=== PATIENT | male | born 1950 | race Hispanic/Latino ===

== ENCOUNTER 2023-10-03 09:44 | Day surgery (SDC) | payer OTHER ==
[2023-10-02 13:34] LABS: BASOPHILS # (AUTO) 0.04 K/uL (0.00-0.20); BASOPHILS % (AUTO) 0.4 % (0.0-5.0); EOSINOPHILS # (AUTO) 0.39 K/uL (0.00-0.70); EOSINOPHILS % (AUTO) 3.7 % (0.0-8.0); HEMATOCRIT 37.6 % (42-54); IMMATURE GRANULOCYTE ABSOLUTE 0.11 K/uL (0-1); LYMPHOCYTES # (AUTO) 2.8 K/uL (1.0-4.8); LYMPHOCYTES % (AUTO) 26.3 % (21.0-51.0); MEAN CORPUSCULAR HEMOGLOBIN 31.2 pg (27.0-33.0); MEAN CORPUSCULAR VOLUME 94.5 fL (79-99); MONOCYTES # (AUTO) 0.8 K/uL (0.1-1.0); MONOCYTES % (AUTO) 7.3 % (3.0-13.0); NEUTROPHILS # (AUTO) 6.5 K/uL (1.8-7.7); NEUTROPHILS % (AUTO) 61.3 % (40.0-77.0); PLATELET COUNT (AUTO) 283 K/uL (130-400); RED BLOOD CELL COUNT(AUTO) 3.98 MIL/uL (4.50-6.20); RED CELL DISTRIBUTION WIDTH 12.4 % (11.0-15.5); WHITE BLOOD COUNT (AUTO) 10.7 K/uL (4.8-10.8)
[2023-10-02 13:38] VITALS: BP 147/70; PULSE 85; RESP 16
[2023-10-02 13:41] LABS: CREATININE 1.2 mg/dL (0.5-1.5); POTASSIUM 4.1 mmol/L (3.5-5.1)
[2023-10-02 13:44] LABS: INR < 0.93 (0.85-1.15); PROTHROMBIN TIME 10.3 SEC (9.6-11.6)
[2023-10-02 13:46] LABS: PARTIAL THROMBOPLASTIN TIME 27.1 SEC (26.3-35.5)
[2023-10-02 13:57] LABS: B-TYPE NATRIURETIC PEPTIDE 16 pg/mL (0-100)
[2023-10-03] VITALS (9 sets, daily range): BP systolic 107–134; BP diastolic 51–68; PULSE 73–98; RESP 15–19
[~2023-10-03] VITALS: Ht 172.7 cm; Wt 90.1 kg
[~2023-10-03 09:44] MED LIST: ATOR40TA69 PO; CARV6.25 PO; CLOP-31 PO; DAPA10TA PO; GABA-529 PO; HYDR-4060 PO; IBUP-2077 PO; ICOS1CAP PO; LOSA100T59 PO; METF-446 PO; NITR0.4T50 SL; ONDA8TAB12 PO; PANT40TA54 PO; SEMA7TAB2 PO; ZOLP10TA2 PO
[2023-10-03] MEDS ORDERED: IOHEXOL 350 MG/ML 100ML INFUS..BTL IV ONE ×2 (11:49→12:48)
[2023-10-03] MEDS ORDERED: LIDOCAINE HCL 400MG/20ML VIAL ONE ×2 (11:49→12:39)
[2023-10-03] MEDS ORDERED: IOHEXOL-350 50ML VIAL IV ONE (11:50)
[2023-10-03] MEDS ORDERED: NITROGLYCERIN 50MG VIAL ONE (11:50)
[2023-10-03] MEDS ORDERED: VERAPAMIL HCL 2.5 MG/ML VIAL ONE (11:50)
[2023-10-03] MEDS ORDERED: HEPARIN 10,000 UNIT/10ML (1,000 UNIT/ML) VIAL ONE (11:50)
[2023-10-03] MEDS ORDERED: TAMS-1 PO (12:23)
[2023-10-03] MEDS ORDERED: BIVALIRUDIN 250 MG/VIAL IV ONE (12:27)
[2023-10-03] MEDS ORDERED: MIDAZOLAM HCL 1 MG/ML 2ML VIAL ONE (12:32)
[2023-10-03] MEDS ORDERED: FENTANYL CITRATE PF 50 MCG/1 ML 2ML VIAL ONE (12:32)
[2023-10-03] MEDS ORDERED: 0.9%NACL 1000ML 1,000 ML IV ONE (12:34)
[2023-10-03] MEDS ORDERED: HYDRALAZINE 20MG/ML VIAL ONE (13:38)
[2023-10-03] MEDS ORDERED: 0.9%NACL 1000ML 1,000 ML IV SCH (14:00)
[2023-10-03] MEDS ORDERED: DEXTROSE 50%-WATER 50 ML DISP.SYRIN IV PRN (14:00)
[2023-10-03] MEDS ORDERED: GLUCAGON 1MG KIT 1 MG ML IM PRN (14:00)
[2023-10-03] MEDS ORDERED: INSULIN HUMULIN R 100 UNIT/ML 3ML SQ SCH (16:30)
== END 2023-10-03 17:10 | disposition home or self-care (01) ==
LOC: DAH 09:44
PROVIDERS: ATTEND Internal Medicine Interventional Cardiology
DX: I25.10 Atherosclerotic heart disease of native coronary artery without angina pectoris (principal); I27.20 Pulmonary hypertension, unspecified; T82.855A Stenosis of coronary artery stent, initial encounter; I73.9 Peripheral vascular disease, unspecified; E11.43 Type 2 diabetes mellitus with diabetic autonomic (poly)neuropathy; E11.59 Type 2 diabetes mellitus with other circulatory complications; I10 Essential (primary) hypertension; J84.10 Pulmonary fibrosis, unspecified; R01.1 Cardiac murmur, unspecified; Z79.01 Long term (current) use of anticoagulants; Z79.899 Other long term (current) drug therapy; Y83.8 Other surgical procedures as the cause of abnormal reaction of the patient, or of later complication, without mention of misadventure at the time of the procedure; Y92.89 Other specified places as the place of occurrence of the external cause
CPT/HCPCS: 80048; 83880; 85025; 85610; 85730; 36415; 71045; 93005; 93460; 93571; 85347; 82948 ×2; C1887; C1894 ×3; C1760; C1769; J3010; J3490 ×3; J7030; J0360; J1644 ×2; J2250; Q9967 ×3; A4215; A4222; A4221; A4663; A4216; A4606; Q9965; A4223 ×3; 99156; 99157; J0583